=== PATIENT | female | born 1970 | race Caucasian/White ===

== ENCOUNTER 2020-09-19 19:21 | Emergency (ER) | payer BC, OTHER ==
[~2020-09-19 19:21] MED LIST: ASPIR 8181 MG PO; BENTYL 20MG TAB20 MG PO; MIRALAX17 GM PO; NITROSTAT0.4 MG SL; ZOFRAN4 MG PO
[2020-09-19 22:12] LABS: HEMOGLOBIN 14.8 gm/dl (12.3-15.3); RED BLOOD COUNT 4.62 M/UL (4.00-5.10)
[2020-09-19 22:23] LABS: BUN/CREATININE RATIO 5 (0-10)
[2020-09-20] MEDS ORDERED: NAPROSYN500 MG PO (02:08)
== END 2020-09-20 02:25 | disposition home or self-care (01) ==
LOC: ER1 19:21
PROVIDERS: Physician Assistant
DX: R10.11 Right upper quadrant pain (principal); F17.200 Nicotine dependence, unspecified, uncomplicated; Z88.2 Allergy status to sulfonamides; Z88.1 Allergy status to other antibiotic agents
CPT/HCPCS: 80053; 81001; 83690; 84703; 85025; 96374; 99284; J1885; J7030; Q9967

== ENCOUNTER → 2020-12-27 | Outpatient (CLI) | payer BC ==
[~2020-12-27] MED LIST changes: +NAPROSYN500 MG PO
== END ==
LOC: KOH-I 08:47
DX: M54.2 Cervicalgia (principal); M79.622 Pain in left upper arm; M47.812 Spondylosis without myelopathy or radiculopathy, cervical region
CPT/HCPCS: 72141